=== PATIENT | female | born 1955 | race Asian ===

== ENCOUNTER 2018-09-15 08:53 | Emergency (ER) | payer MEDICARE ==
[~2018-09-15] VITALS: Ht 160 cm; Wt 70.3 kg
[2018-09-15 09:02] VITALS: Ht 160 cm; Wt 70.3 kg
[2018-09-15 09:38] LABS: CARBON DIOXIDE 31.9 mmol/L (21-32); CHLORIDE SERUM 107 mmol/L (98-107); CREATININE SERUM 0.8 mg/dL (0.6-1.0); GFR1 > 60 mL/min; GLUCOSE SERUM 107 mg/dL (74-106); POTASSIUM SERUM 3.6 mmol/L (3.5-5.1); SODIUM SERUM 143 mmol/L (136-145)
[2018-09-15 09:40] LABS: BASOPHIL % 0.6 % (0-2); PLATELET COUNT 175 x10^3mcL (130-400); RED CELL DISTRIBUTION WIDTH 13.6 % (11.5-14.5)
[2018-09-15 09:43] LABS: ALKALINE PHOSPHATASE 68 U/L (46-116); ALT/SGPT 36 U/L (14-59); AST/SGOT 16 U/L (15-37); BILIRUBIN TOTAL 0.9 mg/dL (0.20-1.00); TOTAL PROTEIN, SERUM 6.7 g/dL (6.4-8.2)
[2018-09-15 09:49] LABS: ALBUMIN 3.2 g/dL (3.4-5.0)
[2018-09-15 10:35] VITALS: BP 139/85
== END 2018-09-15 10:35 | disposition home or self-care (01) ==
LOC: ED 08:53
PROVIDERS: Emergency Medicine
DX: H81.10 Benign paroxysmal vertigo, unspecified ear (principal)
CPT/HCPCS: J1885; J2405; J7030; J8597